=== PATIENT | female | born 1985 | race Caucasian/White ===

== ENCOUNTER 2019-02-12 20:11 | Emergency (ER) | payer BC ==
[2019-02-12 21:02] LABS: #Eosinphils 0.3 thou/uL (0.0-0.7); #Lymphocytes 2.2 thou/uL (1.20-3.40); #Monocytes 0.5 thou/uL (0.11-0.59); %Basophils 0.3 % (0.0-1.0); %Eosinophils 3.7 % (0.0-10.0); %Lymphocytes 24.1 % (21.0-51.0); %Monocytes 5.4 % (0.0-10.0); %Neutrophils 66.5 % (42.0-75.0); Hemoglobin 10.9 g/dL (12.0-16.0); Mean Corpuscular HGB CONC 34.3 g/dL (32.0-36.0); Mean Corpuscular Hemoglobin 29.4 pg (27.0-31.0); Mean Corpuscular Volume 85.8 fL (78.0-98.0); Mean Platelet Volume 7.7 fL (7.4-10.4); Platelet Count 295 thou/uL (130-400); RBC Distribution Width 11.1 % (11.5-14.5); Red Blood Cell (RBC) Count 3.69 mill/uL (4.20-5.40)
[2019-02-12 21:27] LABS: ALT (SGPT) 9 U/L (8-55); AST (SGOT) 10 U/L (5-34); Albumin 3.7 g/dL (3.5-5.0); Alkaline Phosphatase 66 U/L (40-110); Anion Gap 14 mmol/L (10-20); BUN (Urea Nitrogen) 5 mg/dL (7.0-18.7); Bilirubin, Total 0.2 mg/dL (0.2-1.2); Calc. Creatinine Clearance 0 mL/min (70-130); Calcium 9.4 mg/dL (7.8-10.44); Carbon Dioxide 20 mmol/L (22-29); Chloride 107 mmol/L (98-107); Estimated GFR-MDRD Greater than 90; Globulin 3.3 g/dL (2.4-3.5); Glucose 105 mg/dL (70-105); Potassium 3.2 mmol/L (3.5-5.1); Sodium 138 mmol/L (136-145)
--- NOTE | 2019-02-12 23:00 | RAD ---
PORTABLE AP CHEST X-RAY: 02/12/19 HISTORY: Right sided chest pain. COMPARISON: 08/17/16. FINDINGS: The cardiac silhouette and pulmonary vasculature are within normal limits. The lungs remain clear. Th ere has been no interval change compared to the prior exam. IMPRESSION: No acute cardiopulmonary process. POS: OFF
== END 2019-02-12 22:00 | disposition home or self-care (01) ==
LOC: ERS 20:11
DX: O99.89 Other specified diseases and conditions complicating pregnancy, childbirth and the puerperium (principal); R07.2 Precordial pain; O99.282 Endocrine, nutritional and metabolic diseases complicating pregnancy, second trimester; E78.5 Hyperlipidemia, unspecified; E78.00 Pure hypercholesterolemia, unspecified; Z3A.18 18 weeks gestation of pregnancy
CPT/HCPCS: 71045; 80053; 84484; 85025; 93005; 96360

== ENCOUNTER 2019-03-28 10:11 | Day surgery (SDC) | payer BC ==
[2019-03-28 10:59] VITALS: BMI 37.0
[2019-03-28] MEDS ORDERED: Promethazine HCl 12.5 MG in Sodium Chloride 0.9% 50 ML IVPB PRN (11:09)
[2019-03-28] MEDS ORDERED: Lactated Ringer's 1,000 ML IV SCH ×2 (11:15)
[2019-03-28] MEDS ORDERED: Lidocaine 1% (PF) 30 ML VIAL ONE (11:22)
[2019-03-28] MEDS ORDERED: Promethazine HCl 25 MG/ML VIAL ONE (11:39)
[2019-03-28 12:21] LABS: #Eosinphils 0.1 thou/uL (0.0-0.7); #Lymphocytes 0.7 thou/uL (1.20-3.40); #Monocytes 0.3 thou/uL (0.11-0.59); %Basophils 0.1 % (0.0-1.0); %Eosinophils 1.1 % (0.0-10.0); %Lymphocytes 8.3 % (21.0-51.0); %Monocytes 4.3 % (0.0-10.0); %Neutrophils 86.2 % (42.0-75.0); Hemoglobin 10.9 g/dL (12.0-16.0); Mean Corpuscular HGB CONC 32.7 g/dL (32.0-36.0); Mean Corpuscular Hemoglobin 28.1 pg (27.0-31.0); Mean Corpuscular Volume 85.8 fL (78.0-98.0); Mean Platelet Volume 7.7 fL (7.4-10.4); Platelet Count 256 thou/uL (130-400); RBC Distribution Width 11.6 % (11.5-14.5); Red Blood Cell (RBC) Count 3.88 mill/uL (4.20-5.40); White Blood Cell (WBC) Count 8.1 thou/uL (4.8-10.8)
[2019-03-28 12:41] LABS: Bilirubin Negative (Negative); Blood, Urine Negative (Negative); Clarity Clear (Clear); Glucose, Urine (Dipstick) Normal (Negative); Leukocyte 25 Leu/uL (Negative); Nitrite Negative (Negative); Protein, Urine (Dipstick) 20 mg/dL (Neg-Trace); RBC/HPF 0-3 HPF (0-3); Urobilinogen Normal mg/dL (Less than 2); WBC/HPF 0-3 HPF (0-3)
[2019-03-28 12:44] LABS: Bacteria/HPF 1+ HPF (None Seen)
[2019-03-28 12:50] LABS: ALT (SGPT) 9 U/L (8-55); AST (SGOT) 10 U/L (5-34); Albumin 3.3 g/dL (3.5-5.0); Alkaline Phosphatase 77 U/L (40-110); Anion Gap 12 mmol/L (10-20); BUN (Urea Nitrogen) 6 mg/dL (7.0-18.7); Bilirubin, Total 0.7 mg/dL (0.2-1.2); Calc. Creatinine Clearance 240 mL/min (70-130); Calcium 8.7 mg/dL (7.8-10.44); Carbon Dioxide 17 mmol/L (22-29); Chloride 107 mmol/L (98-107); Estimated GFR-MDRD Greater than 90; Globulin 3.1 g/dL (2.4-3.5); Glucose 87 mg/dL (70-105); Potassium 3.2 mmol/L (3.5-5.1); Protein, Total 6.4 g/dL (6.0-8.3); Sodium 133 mmol/L (136-145)
--- NOTE | 2019-03-29 04:07 | SS ---
DATE OF ADMISSION: 03/28/2019 DATE OF DISCHARGE: 03/28/2019 REGULAR PHYSICIAN: Kimberly Cheney MD EVALUATING PHYSICIAN: Freddy Zimmerman MD CHIEF COMPLAINT: Nausea, vomiting at home. HISTORY OF PRESENT ILLNESS: Ms. Prakash is a 33-year-old white G2, P1-0-0-1 with an estimated date of confinement of 07/13/2019, who presents complaining of nausea, vomiting, and diarrhea over the last 24 hours. She states that her family has had very similar symptoms, both her and her son have already had this. She denies fever, chills, urinary symptoms, or vaginal bleeding. Her care has been with Dr. Cheney and has been uncomplicated. PAST MEDICAL HISTORY: None. PAST SURGICAL HISTORY: Cholecystectomy. CURRENT MEDICATIONS: vitamins. ALLERGIES: NO KNOWN ALLERGIES. SOCIAL HISTORY: Denies tobacco, alcohol, or drug use. PHYSICAL EXAMINATION: VITAL SIGNS: In triage, her vital signs are stable. She is afebrile. GENERAL: She is pleasant, but does not appear to feel well. ABDOMEN: Soft, nontender, and gravid. There is no guarding or rebound. PELVIC: Deferred. heart rate tracing is stable. No significant uterine contractions are seen. LABORATORY DATA: White count 8.1, hemoglobin and hematocrit 10.9 and 33.3, platelet count 256,000. Chemistry; sodium 133, potassium 3.2, and creatinine 0.60. Total bilirubin 0.7, AST and ALT are 10 and 9 respectively. Alkaline phosphatase 77. Urinalysis shows a specific gravity of 1.023 with negative glucose, positive ketones, negative blood, negative nitrite, negative bilirubin, trace leukocyte esterase. On microscopic, there are 0 to 3 rbc's, 0 to 3 wbc's, and 4 to 6 squamous cells. 1+ bacteria seen. Patient is rehydrated with IV fluid. She feels markedly better after replacement with IV fluid. She is able to tolerate crackers and juice. ASSESSMENT: 1. 24-5/7 week intrauterine . 2. Suspect viral syndrome. 3. No evidence of labor. PLAN: Patient will be dismissed to home. She was told to keep herself hydrated with Gatorade for electrolyte replacement. She can also use [id number] diarrheal should she need to. She states that Dr. Cheney's office is already called in [facility] for her and she will use that for nausea. She is told to return here should her symptoms recur. Job ID: [id number]
== END 2019-03-28 15:55 | disposition home or self-care (01) ==
LOC: L&D/OP 10:11
PROVIDERS: ATTEND Obstetrics & Gynecology
DX: O21.2 Late vomiting of pregnancy (principal); O99.611 Diseases of the digestive system complicating pregnancy, first trimester; R19.7 Diarrhea, unspecified; Z3A.24 24 weeks gestation of pregnancy
CPT/HCPCS: 36415; 80053; 81003; 81015; 85025; J2001; J2550

== ENCOUNTER 2019-07-01 15:12 | Inpatient (IN) | payer BC ==
[~2019-07-01 15:12] MED LIST: Bupivacaine 0.25% HCL 30 ML VIAL ONE
[2019-07-01] MEDS ORDERED: NS / Oxytocin 40 units/1000ml 1,000 ML IV PRN (22:11)
[2019-07-01] MEDS ORDERED: Butorphanol Tartrate 1 MG/ML VIAL SLOW IVP PRN (22:11)
[2019-07-01] MEDS ORDERED: Misoprostol 200 MCG TAB PR PRN (22:11)
[2019-07-01] MEDS ORDERED: Acetaminophen 500 MG TAB PO PRN (22:11)
[2019-07-01] MEDS ORDERED: hydrALAZINE 20 MG/ML VIAL SLOW IVP PRN (22:11)
[2019-07-01] MEDS ORDERED: HYDROcodone/Acetaminophen 5/325 mg Tablet PO PRN ×2 (22:11)
[2019-07-01] MEDS ORDERED: Diphenoxylate HCl/Atropine Tablet PO PRN ×2 (22:11)
[2019-07-01] MEDS ORDERED: Docusate 100 MG CAP PO PRN (22:11)
[2019-07-01] MEDS ORDERED: Promethazine HCl 25 MG/ML VIAL IM PRN (22:11)
[2019-07-01] MEDS ORDERED: Ibuprofen 800 MG TAB PO PRN (22:11)
[2019-07-01] MEDS ORDERED: NS w/ Oxytocin 10 units 500 ML IV SCH ×2 (22:11)
[2019-07-01] MEDS ORDERED: Lidocaine 1% (PF) 30 ML VIAL SC PRN (22:11)
[2019-07-01] MEDS ORDERED: Ondansetron PF 4 MG/2 ML Vial IVP PRN (22:11)
[2019-07-01] MEDS: Lactated Ringer's 1,000 ML IV SCH (22:15)
[2019-07-01 22:23] VITALS: BMI 37.0
[2019-07-01 22:39] LABS: Hemoglobin 11.2 g/dL (12.0-16.0); Mean Corpuscular HGB CONC 34.1 g/dL (32.0-36.0); Mean Corpuscular Volume 82.2 fL (78.0-98.0); Mean Platelet Volume 8.7 fL (7.4-10.4); Platelet Count 299 thou/uL (130-400); RBC Distribution Width 12.7 % (11.5-14.5); Red Blood Cell (RBC) Count 4.01 mill/uL (4.20-5.40); White Blood Cell (WBC) Count 8.9 thou/uL (4.8-10.8)
[2019-07-01] MEDS: Misoprostol 100 MCG TAB VAG PRN (23:00)
[2019-07-01 23:24] LABS: HBSAg Index 0.18 S/CO (0-0.99); Hep B Surf Ag Non-Reactive S/CO (NonReactive); Syphilis Antibody Nonreactive (Nonreactive); Syphilis Antibody Index 0.05 S/CO (<1.00 Non-Reactive)
[2019-07-01] MEDS ORDERED: Zolpidem Tartrate 5 MG TAB PO SCH (23:30)
[2019-07-02] MEDS: Misoprostol 100 MCG TAB VAG PRN (03:12)
[2019-07-02] MEDS: Lactated Ringer's 1,000 ML IV SCH (05:43)
[2019-07-02] MEDS ORDERED: Fentanyl 4 mcg/Bup 0.1% Cadd 100 ML ONE ×2 (06:50→13:22)
[2019-07-02] MEDS ORDERED: Naloxone HCl 0.4 mg/ml Vial IVP PRN ×2 (08:05)
[2019-07-02] MEDS ORDERED: Promethazine HCl 25 MG/ML VIAL IM PRN (08:05)
[2019-07-02] MEDS ORDERED: Ondansetron PF 4 MG/2 ML Vial IVP PRN ×2 (08:05→15:33)
[2019-07-02] MEDS ORDERED: Acetaminophen 325 MG TAB PO PRN (08:05)
[2019-07-02] MEDS ORDERED: Lactated Ringer's 500 ML IV PRN (08:05)
[2019-07-02] MEDS ORDERED: diphenhydrAMINE 50 MG/ML VIAL IVP PRN (08:05)
[2019-07-02] MEDS ORDERED: EPHEDRINE 25 MG/5 ML SYRINGE SLOW IVP PRN (08:05)
[2019-07-02] MEDS ORDERED: Fentanyl 4 mcg/Bupivacaine 0.1% Cassette 100 ML EPIDURAL SCH (08:15)
[2019-07-02] MEDS ORDERED: Communication Order-Pharmacy FS SCH (08:15)
[2019-07-02] MEDS ORDERED: Fentanyl 100 MCG/2 ML VIAL ONE (12:33)
[2019-07-02] MEDS ORDERED: Terbutaline Sulfate 1 MG/ML VIAL ONE (13:28)
[2019-07-02] MEDS ORDERED: Acetaminophen/Codeine 30-300mg Tablet PO PRN ×2 (15:33)
[2019-07-02] MEDS ORDERED: Benzocaine-Menthol 82.5 ML CAN TOP PRN (15:33)
[2019-07-02] MEDS ORDERED: diphenhydrAMINE 25 MG CAP PO PRN (15:33)
[2019-07-02] MEDS ORDERED: Preparation H Ointment 28 GM TUBE PR PRN (15:33)
[2019-07-02] MEDS ORDERED: hydrALAZINE 20 MG/ML VIAL SLOW IVP PRN (15:33)
[2019-07-02] MEDS ORDERED: Bisacodyl 10 MG SUPP PR PRN (15:33)
[2019-07-02] MEDS ORDERED: Misoprostol 200 MCG TAB VAG PRN (15:33)
[2019-07-02] MEDS ORDERED: Zolpidem Tartrate 5 MG TAB PO PRN (15:33)
[2019-07-02] MEDS ORDERED: NS / Oxytocin 40 units/1000ml 1,000 ML IV SCH (15:45)
[2019-07-02] MEDS: Ferrous Sulfate 325 MG TAB PO SCH (17:54)
[2019-07-02] MEDS: Ibuprofen 800 MG TAB PO SCH (18:47)
[2019-07-02] MEDS: Docusate Calcium (SURFAK) 240 MG CAP PO SCH (20:36)
[2019-07-03] MEDS: Ibuprofen 800 MG TAB PO SCH ×3 (05:07→20:50)
[2019-07-03] MEDS: Milk Of Magnesia 30 ML UDCUP PO PRN ×2 (05:07→17:33)
[2019-07-03 06:33] LABS: Hemoglobin 9.4 g/dL (12.0-16.0); Mean Corpuscular Volume 82.8 fL (78.0-98.0); Platelet Count 224 thou/uL (130-400); RBC Distribution Width 12.7 % (11.5-14.5); Red Blood Cell (RBC) Count 3.26 mill/uL (4.20-5.40); White Blood Cell (WBC) Count 9.7 thou/uL (4.8-10.8)
[2019-07-03] MEDS ORDERED: Adacel (T-DAP) 0.5 ML SYRINGE IM ONE (09:00)
[2019-07-03] MEDS: Docusate Calcium (SURFAK) 240 MG CAP PO SCH ×2 (10:04→20:49)
[2019-07-03] MEDS: Ferrous Sulfate 325 MG TAB PO SCH ×2 (10:04→17:30)
[2019-07-04] MEDS: Ibuprofen 800 MG TAB PO SCH (04:26)
[2019-07-04 08:32] VITALS: BP 109/65; TEMP 98.8
[2019-07-04] MEDS: Docusate Calcium (SURFAK) 240 MG CAP PO SCH (09:29)
[2019-07-04] MEDS: Ferrous Sulfate 325 MG TAB PO SCH (09:30)
[2019-07-04] MEDS ORDERED: Acetaminophen/Codeine 30-300mg Tablet PO PRN ×2 (14:09)
[2019-07-04] MEDS ORDERED: diphenhydrAMINE 25 MG CAP PO PRN (14:10)
[2019-07-04] MEDS ORDERED: Bisacodyl 10 MG SUPP PR PRN (14:10)
[2019-07-04] MEDS ORDERED: Milk Of Magnesia 30 ML UDCUP PO PRN (14:10)
[2019-07-04] MEDS ORDERED: Benzocaine-Menthol 82.5 ML CAN TOP PRN (14:10)
[2019-07-04] MEDS ORDERED: Preparation H Ointment 28 GM TUBE PR PRN (14:11)
[2019-07-04] MEDS ORDERED: Zolpidem Tartrate 5 MG TAB PO PRN (14:11)
[2019-07-04] MEDS ORDERED: Ondansetron PF 4 MG/2 ML Vial IVP PRN (14:11)
[2019-07-04] MEDS ORDERED: Ibuprofen 800 MG TAB PO SCH ×2 (14:15→22:00)
[2019-07-04] MEDS ORDERED: NS / Oxytocin 40 units/1000ml 1,000 ML IV SCH (14:15)
[2019-07-04] MEDS ORDERED: Ferrous Sulfate 325 MG TAB PO SCH (17:00)
[2019-07-04] MEDS ORDERED: Docusate Calcium (SURFAK) 240 MG CAP PO SCH (21:00)
== END 2019-07-04 17:50 | disposition home or self-care (01) | DRG 806 ==
LOC: L&D 21:28 → 3SW 07-02 17:20 → UNDODISIN 07-04 13:20 → EDSTATUS 07-13 15:11
PROVIDERS: ADMIT Obstetrics & Gynecology; ATTEND Obstetrics & Gynecology
PROC: 10E0XZZ Delivery of Products of Conception, External Approach (ICD-10-PCS; principal; 2019-07-01)
DX: O99.89 Other specified diseases and conditions complicating pregnancy, childbirth and the puerperium (principal); D62 Acute posthemorrhagic anemia; Z37.0 Single live birth; M06.9 Rheumatoid arthritis, unspecified; O48.0 Post-term pregnancy; O99.02 Anemia complicating childbirth; Z3A.40 40 weeks gestation of pregnancy
CPT/HCPCS: 36415; 51702; 85027; 86780; 86850; 86900; 86901; 87340; 90715; J2590; J3010; J3105; S0020

== ENCOUNTER 2020-09-28 16:07 | Outpatient (CLI) | payer BC | END 2020-09-28 16:08 | disposition home or self-care (01) | LOC: BICRAD 16:07 | PROVIDERS: ATTEND Internal Medicine Rheumatology | DX: M06.09 Rheumatoid arthritis without rheumatoid factor, multiple sites (principal) | CPT/HCPCS: 71046 ==

== ENCOUNTER 2021-01-21 11:16 | Outpatient (CLI) | payer BC | END 2021-01-21 11:17 | disposition home or self-care (01) | LOC: BICRAD 11:16 | PROVIDERS: ATTEND Family Medicine | DX: M25.551 Pain in right hip (principal) ==

== ENCOUNTER 2021-01-26 08:12 | Outpatient (CLI) | payer BC | END 2021-01-26 08:13 | disposition home or self-care (01) | LOC: BICRAD 08:12 | PROVIDERS: ATTEND Family Medicine | DX: M53.3 Sacrococcygeal disorders, not elsewhere classified (principal); M47.817 Spondylosis without myelopathy or radiculopathy, lumbosacral region | CPT/HCPCS: 72100 ==

== ENCOUNTER 2021-02-01 08:32 | Outpatient (CLI) | payer BC | END 2021-02-01 08:33 | disposition home or self-care (01) | LOC: TBSIIMAG 08:32 | PROVIDERS: ATTEND Family Medicine | DX: M47.26 Other spondylosis with radiculopathy, lumbar region (principal) | CPT/HCPCS: 72148 ==